=== PATIENT | female | born 1985 | race Two or more races ===

== ENCOUNTER 2017-06-08 12:08 | Observation (INO) | payer SELFPAY ==
[2017-06-08 12:33] VITALS: BMI 22.3
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
[2017-06-08 13:04] VITALS: PULSE 88; O2SAT 97
[2017-06-08 13:32] LABS: BASO % 0.5 % (0.0-2.0); EOS % 0.3 % (0.0-4.0); HEMATOCRIT 36.7 % (34.0-47.0); LYMPH # 2.2 K/uL (1.0-4.3); MEAN CELL VOLUME 102.9 fl (81.0-99.0); MEAN CORPUSCULAR HEMOGLOBIN 35.3 pg (27.0-31.0); MEAN CORPUSCULAR HGB CONC 34.4 g/dL (33.0-37.0); MEAN PLATELET VOLUME 7.8 fl (7.2-11.7); MONO # 1.2 K/uL (0.0-0.8); MONO % 14.9 % (0.0-10.0); NEUT # 4.8 K/uL (1.8-7.0); NEUT % 57.3 % (50.0-75.0); RED CELL DISTRIBUTION WIDTH 13.1 % (11.5-14.5); WHITE BLOOD COUNT 8.3 K/uL (4.8-10.8)
[2017-06-08 13:42] LABS: BLOOD UREA NITROGEN 6 mg/dl (7-17); CHLORIDE 109 mmol/L (98-107); GFR AFRICAN-AMERICAN > 60; GLUCOSE,RANDOM 101 mg/dL (65-105)
[2017-06-08 13:43] LABS: ALB/GLOB RATIO 1.3 (1.0-2.1); ALKALINE PHOSPHATASE 67 U/L (38-126); ALT/SGPT 154 U/L (9-52); AST/SGOT 157 U/L (14-36); BILIRUBIN,TOTAL 0.5 mg/dl (0.2-1.3); CALCIUM 8.9 mg/dL (8.4-10.2); CARBON DIOXIDE 26 mmol/L (22-30); TOTAL PROTEIN 7.5 G/DL (6.3-8.2)
[2017-06-08 13:50] LABS: SODIUM 152 mmol/l (132-148)
[2017-06-08 13:51] LABS: ALCOHOL SERUM 476 mg/dl (0-10)
[2017-06-08 13:52] LABS: POTASSIUM 2.7 MMOL/L (3.6-5.0)
[2017-06-08] MEDS ORDERED: Potassium Chloride 20 mEq ER Tab PO STA (13:53)
[2017-06-08] MEDS ORDERED: Potassium Chl 20 mEq in NS 1,000 ML IV SCH (14:00)
[2017-06-08] MEDS ORDERED: Potassium Chloride 20 mEq ER Tab PO ONE (14:06)
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
[2017-06-08 21:26] VITALS: BP 114/78; RESP 14; TEMP 98
== END 2017-06-08 23:04 | disposition home or self-care (01) ==
LOC: H.ER 12:08 → H.EROBSV 12:34
PROVIDERS: ADMIT Emergency Medicine; ATTEND Emergency Medicine
DX: F10.129 Alcohol abuse with intoxication, unspecified (principal); F17.200 Nicotine dependence, unspecified, uncomplicated; Y09 Assault by unspecified means
CPT/HCPCS: 36415; 70450; 80053; 81025; 84132; 85025; 90471; 90715; 99282; G0378; G0480